=== PATIENT | female | born 1985 | race Caucasian/White ===

== ENCOUNTER → 2024-02-24 | Outpatient (CLI) | payer OTHER, SELFPAY ==
--- NOTE | 2024-02-24 09:29 | BI_ITS ---
MAMMOGRAPHY - BILATERAL SCREENING REASON FOR EXAM: Female, 38 years old. Routine annual screening examination. PERTINENT HISTORY: Aunt with breast cancer. TECHNIQUE: Digital bilateral breast teresita (3D mammographic acquisition) in the CC and MLO projections. 2-D mediolateral oblique (MLO) and craniocaudad (CC) views of both breasts were obtained. CAD: Full Field Digital Mammography with Computer Added Detection was performed. COMPARISON: None. Baseline examination. FINDINGS: Breast Composition: The breasts are heterogeneously dense, which may obscure small masses. There is a 2 cm x 0.8 cm irregular nodular density in the upper slightly lateral aspect of the left breast. Adjacent to this, there is a 8.4 mm x 5.2 mm spiculated nodule. Correlation with ultrasound is recommended for further evaluation. No other significant abnormalities are identified. BI/SCRN MAMM (CAD)W/TERESITA BILAT IMPRESSION: There are 2 adjacent suspicious nodules in the upper outer aspect of the left breast as described. Correlation with ultrasound is recommended. ASSESSMENT CATEGORY: BIRADS Category 0: Incomplete. Need additional imaging evaluation. A letter regarding these results will be sent to the patient by the facility within 30 days. Approximately 10% of breast cancers are not detected by mammography. A normal mammogram should not delay biopsy of a clinically suspicious abnormality. [id number] Electronically Signed: Myles Taylor MD at 10:35 EST ,
== END | disposition home or self-care (01) ==
LOC: OPBI 09:27
PROVIDERS: PCP Physician Assistant; Referring Provider Physician Assistant; Visit Provider Physician Assistant
DX: Z12.31 Encounter for screening mammogram for malignant neoplasm of breast (principal)
CPT/HCPCS: 77063; 77067

== ENCOUNTER → 2024-03-12 | Outpatient (CLI) | payer OTHER, SELFPAY ==
--- NOTE | 2024-03-12 08:13 | US_ITS ---
STUDY: ULTRASOUND BREAST - RIGHT REASON FOR EXAM: Female, 38 years old. Abnormal screening mammogram. TECHNIQUE: Axial and longitudinal images of the RIGHT breast were performed with a high resolution ultrasound transducer. # OF IMAGES: 69 COMPARISON: Comparison is made with prior mammogram dated February 24, 2024. FINDINGS: RIGHT Breast: The mammographic abnormality corresponds to a 1.2 cm x 1.6 cm x 0.6 cm hypoechoic slightly irregular nodule at the 1:00 position of the breast at 3 cm from the nipple. Biopsy is recommended. Incidental note is made of a benign-appearing lymph node at the 9:00 position of the breast at 8 cm from the nipple. IMPRESSION: 1.2 cm x 1.6 cm x 0.6 cm hypoechoic slightly irregular nodule at the 1:00 position of the breast at 3 cm from the nipple. Biopsy recommended. ASSESSMENT CATEGORY: BIRADS Category 4: Suspicious - Biopsy Should Be Considered. A letter regarding these results will be sent to the patient by the facility within 30 days. Electronically Signed: Myles Taylor MD at 14:20 EST , STUDY: ULTRASOUND BREAST - LEFT REASON FOR EXAM: Female, 38 years old. Abnormal screening mammogram. TECHNIQUE: Axial and longitudinal images of the LEFT breast were performed with a high resolution ultrasound transducer. # OF IMAGES: 69 COMPARISON: Comparison is made with prior mammogram dated February 24, 2024. FINDINGS: LEFT Breast: The upper-outer quadrant of the left breast was examined with ultrasound. There is a 1.6 cm x 1.6 cm x 1.1 cm hypoechoic irregular nodule at the 2:00 position of the breast at 6 cm from the nipple. Biopsy recommended. US/Breast Limited Unilateral IMPRESSION: The mammographic abnormality corresponds to 1.6 cm x 1.6 x 1.1 cm hypoechoic irregular nodule at the 2:00 position of the breast at 6 cm from the nipple. Biopsy recommended. ASSESSMENT CATEGORY: BIRADS Category 4: Suspicious - Biopsy Should Be Considered. A letter regarding these results will be sent to the patient by the facility within 30 days. Electronically Signed: Myles Taylor MD at 14:22 EST ,
== END | disposition home or self-care (01) ==
PROVIDERS: PCP Physician Assistant; Referring Provider Physician Assistant; Visit Provider Physician Assistant
DX: R92.8 Other abnormal and inconclusive findings on diagnostic imaging of breast (principal)
CPT/HCPCS: 76642

== ENCOUNTER → 2024-03-16 | Outpatient (CLI) | payer OTHER, SELFPAY ==
--- NOTE | 2024-03-16 | BRBX_PTH ---
PATIENT: MALLORY PETERSON LOC: [facility] U#:[id number] AGE/SX: 38/F ROOM: RE03/16/[address]: Dr. Jonatan Fsihman MD : 1985 BED: DIS: 03/16/2024 SPEC #: [id number] RECD: 03/17/24 07:15 STATUS: MADAN DA #: [id number] VENESSA: 03/16/24 00:[address]: Jonatan Fishman DEPT: SURGICAL PATHOLOGY RECD BY: Jose Buck ENTERED: 03/17/24 07:16 SP TYPE: BREAST BX OTHR DR: JOHNNY Rey Tissues: A - Right breast, NOS B - Left breast, NOS Procedures: Surgery Specimen Level IV HEADER OPERATION: Ultrasound guided needle core biopsy bilateral breasts PRE-OP DIAGNOSIS: Abnormal mammogram TISSUE SUBMITTED: A- Right breast biopsy, B- Left breast biopsy MICROSCOPIC DIAGNOSIS A. Right breast, core biopsy: Hyalinized stroma with focal duct ectasia. See comment. B. Left breast, core biopsy: Hyalinized stroma with focal duct ectasia. Focal intraductal hyperplasia without atypia. See comment. AMRoberto 03/18/2024 COMMENT A. Lesion may represent a fibroadenoma. Clinical correlation is suggested. B. A ruptured cyst with associated reactive/reparative change is a possibility. Clinical correlation is suggested. MICROSCOPIC DESCRIPTION Slides are reviewed. GROSS DESCRIPTION A. Received in fixative is one container labeled with the patient's name and designated Right breast biopsy. The specimen consists of two elongated fragments of springer soft tissue that in aggregate measure 2.0 x 0.3 x 0.1 cm. The specimen is totally submitted in one cassette. B. Received in fixative is one container labeled with the patient's name and designated Left breast biopsy. The specimen consists of multiple irregular and elongated fragments of springer tissue that in aggregate measure 1.5 x 0.3 x 0.1 cm. The specimen is totally submitted in one cassette. AM. 03/17/2024 TC:5 CPT:18679l1
== END | disposition home or self-care (01) ==
LOC: LABSPEC 16:01
PROVIDERS: PCP Physician Assistant; Referring Provider Surgery; Visit Provider Surgery
DX: N60.41 Mammary duct ectasia of right breast (principal); R92.8 Other abnormal and inconclusive findings on diagnostic imaging of breast
CPT/HCPCS: 88305

== ENCOUNTER → 2024-06-18 | Outpatient (CLI) | payer OTHER, SELFPAY ==
[2024-06-23 14:08] LABS: HPV APTIMA, High Risk Negative (Negative)
== END | disposition home or self-care (01) ==
LOC: LABSPEC 15:43
PROVIDERS: PCP Physician Assistant; Referring Provider Obstetrics & Gynecology; Visit Provider Obstetrics & Gynecology
DX: Z12.4 Encounter for screening for malignant neoplasm of cervix (principal)
CPT/HCPCS: 36415; 87624; 88175; G0145